=== PATIENT | female | born 1955 | race Caucasian/White ===

== ENCOUNTER 2016-05-14 21:18 | Emergency (ER) | payer OTHER ==
[~2016-05-14] VITALS: Ht 160 cm; Wt 110.5 kg
[~2016-05-14 21:18] MED LIST: ACET-171 PO; ALPR1TAB7 PO; ASPI-973 PO; CARV6.252 PO; CLOP75TA3 PO; CYCL5TAB PO; DOCU50CA7 PO; FABRAZYME IV; GABA600T2 PO; GLPZ5T PO; INSU100I SQ; LIP40 PO; Lantus; MYCO500T3 PO; NPH,100V11 SUBQ; ONDA-53 PO; OXYC20TA4 PO; PANT40TA2 PO; PRD5T PO; Senna PO; TACR1CAP8 PO; TORS10TA5 PO
[2016-05-14] MEDS ORDERED: 0.9% Sodium Chloride 1,000 ML IV ONE (21:21)
--- NOTE | 2016-05-14 21:21 | ED.REPORT ---
HPI-Altered Mental Status Date of Service May 14, 2016 ED Provider: MD Kennedy This is a 60 year old female with a history of Fabry disease s/p renal transplant in 2010 and DM presenting to the emergency department via EMS due to altered mental status. En route, patient was awake but not responsive to interview. En route, blood pressure 142/77, HR 120, blood sugar 338. On interview with family members present in the room, they report pt has been sick in the last few weeks with cough and cold symptoms with productive cough with green sputum. In the last two days, they report increased malaise and weakness, patient has been unable to get out of bed in the last two days. Nursing Notes Stated Complaint: ALTERED MENTAL STATUS Nursing Notes Reviewed: Yes Allergies: Coded Allergies: Penicillins (Verified Allergy, Severe, Anyphylaxis - SOB, 02/10/13) warfarin sodium (Verified Allergy, Severe, R/T FABRY'S DISEASE - CVA, ) hydrocodone bitartrate (Verified Allergy, Mild, Dizzy-"ILL", 08/07/12) iodine (Verified Allergy, Unknown, 10/27/14) pregabalin (Unverified Allergy, Unknown, 10/27/14) unable to urinate while on med Uncoded Allergies: Iodine-Topical (Allergy, Severe, Rash (BETADINE), 08/07/12) GRAPEFRUIT/POMEGRANATE (Adverse Reaction, Severe, INTERACT W/ MEDS, 08/07/12) Scheduled ([Fabrazyme]) 70 MG IV [id number] ([Lantus]) 45 HS ([Senna]) 1 TAB PO DAILY Aspirin (Aspirin) 81 Mg Tablet 81 MG PO DAILY Atorvastatin (Lipitor) 40 Mg Tablet 40 MG PO DAILY Atorvastatin (Lipitor) 40 Mg Tablet 40 MG PO DAILY Carvedilol (Carvedilol) 6.25 Mg Tablet 6.25 MG PO BID Clopidogrel Bisulfate (Plavix) 75 Mg Tablet 75 MG PO DAILY Gabapentin (Gabapentin) 600 Mg Tablet 600 MG PO BID Glipizide (Glipizide) 5 Mg Tablet 5 MG PO BID Insulin Aspart (NovoLOG U-100 Pen) 100 Unit/Ml Insuln.pen 5-25 UNITS SQ TIDWM Mycophenolate Mofetil (Mycophenolate Mofetil) 500 Mg Tablet 500 MG PO BID NPH, Human Insulin Isophane (HUMulin-N U100 Insulin Vial) 100 Unit/1 Ml Vial 60 UNIT SUBQ AM Ondansetron (Ondansetron) 4 Mg Tablet 4 MG PO prn Pantoprazole DR (Protonix) 40 Mg Tablet 40 MG PO DAILY Prednisone (PredniSONE) 5 Mg Tab 5 MG PO DAILY Tacrolimus (Tacrolimus) 1 Mg Capsule 4 MG PO BID Scheduled PRN Acetaminophen (Acetaminophen) 500 Mg Tablet 500 MG PO Q6H PRN PRN For Pain Alprazolam (Alprazolam) 1 Mg Tablet 1 MG PO BID PRN PRN For Anxiety Cyclobenzaprine (Cyclobenzaprine) 5 Mg Tablet 10 MG PO TID PRN PRN Spasm Docusate Sodium (Docusate Sodium) 50 Mg Capsule 100-200 MG PO BID PRN PRN For Constipation oxyCODONE (oxyCODONE) 20 Mg Tablet 20 MG PO HS PRN PRN For Pain Miscellaneous Medications Torsemide (Torsemide) 10 Mg Tablet 10 MG PO General Time Seen by MD: 21:20 Chief Complaint Decreased responsiveness Hx Obtained From: EMS Arrived By: Ambulance Sudden in Onset?: Yes Onset Occurred: Just prior to arrival Symptom Duration: Since onset Severity: Current: No pain currently Pertinent Negative: Pt denies other symptoms Recent Healthcare: Recent hospitalization Similar Sx Previous: No Past Medical History Past Medical History Fabry disease Reports: Diabetes mellitus Past Surgical History Renal transplant in 2010 at Ambulatory Status Independent Review of Systems Unable to Obtain ROS Mental status (limited) Psychiatric: Reports: Change mental status Physical Exam Initial Vital Signs Vital Signs (First) Date Time Temp Pulse Resp B/P Pulse Ox O2 Delivery O2 Flow Rate FiO2 05/14/16 21:26 39.6 126 22 162/94 98 Nasal Cannula 2 -- Initial VS: Reviewed Extremities: Vascular intact General/Constitutional: Awake Head / Eyes: PERRL Neck: Atraumatic, Supple, No meningismus, Full range of motion, No swelling, Non-tender, No midline vertebral tend, No masses, No carotid bruit, Thyroid NL Respiratory / Chest: Breath sounds NL, Breath sounds = bilat, No respiratory distress, No rales, No rhonchi, No wheezing Palpable chord in left chest Heart Rate / Rhythm: Positive: Tachycardia Neurologic: No sensory deficits Mental Status: Positive: Unresponsive Abdomen: BS normoactive Contusions to bilateral stomach. Erythema and edema above pubic bone that is tender to palpation Upper Extremity / MS: Vascular intact Fistula in left upper extremity with palpable thrill Interpretation & Diagnostics Lab Results Interpretation Result Diagram: 05/14/16223405/14/162234 Test 05/14/16 22:10 05/14/16 22:35 Urine Color Yellow (YELLOW) Urine Appearance Clear (CLEAR,HAZY) Urine pH 6.0 (5.0-8.0) Urine Specific [place] 1.015 (1.003-1.035) Urine Protein 100mg/dL (NEG,TRACE) Urine Glucose (UA) 250mg/dL (NEGATIVE) Urine Ketones Negativemg/dL (NEGATIVE) Urine Occult Blood Moderate (NEGATIVE) Urine Nitrite Positive (NEGATIVE) Urine Bilirubin Negative (NEGATIVE) Urine Urobilinogen Normalmg/dL (NORMAL) Urine Leukocyte Esterase Moderate (NEGATIVE) Urine RBC 3-10/hpf (0-2) Urine WBC >50/hpf (0-5) Urine Epithelial Cells Many/hpf (NONE-MOD) Urine Crystals None seen (NONE SEEN) Urine Bacteria Many/hpf (NONE-FEW) Urine Hyaline Casts None/lpf (NONE) Urine Granular Casts None seen (NONE SEEN) Urine Waxy Casts None seen (NONE SEEN) Urine Red Blood Cell Casts None seen (NONE SEEN) Urine White Blood Cell Casts None seen (NONE SEEN) Urine Mucus None seen (None Seen) Urine Trichomonas None seen (NONE SEEN) Urine Yeast None (NONE SEEN) Urinalysis Comment None Urine Culture Reflexed Indicated White Blood Count 14.7th/mm3 (3.8-10.1) Red Blood Count 4.42mil/mm3 (3.90-5.20) Hemoglobin 13.6g/dL (12.0-15.6) Hematocrit 40.9% (35.0-46.0) Mean Corpuscular Volume 92.5fL (81-100) Mean Corpuscular Hemoglobin 30.8pg (27.0-35.0) Mean Corpuscular Hemoglobin Concent 33.3% (32.0-37.0) Red Cell Distribution Width 14.5% (12.3-15.4) Platelet Count 307bil/L (150-400) Neutrophils (%) (Auto) 82% (40-74) Lymphocytes (%) (Auto) 4% (14-46) Monocytes (%) (Auto) 14% (4-12) Eosinophils (%) (Auto) 0% (0-5) Basophils (%) (Auto) 0% (0-3) Prothrombin Time 11.1sec (8.1-12.5) Prothromb Time International Ratio 1.04ratio Activated Partial Thromboplast Time 27.3sec (22.8-33.0) Sodium Level 136mEq/L (134-144) Potassium Level 5.1mEq/L (3.5-5.2) Chloride Level 96mEq/L (97-108) Carbon Dioxide Level 21mmol/L (18-29) Blood Urea Nitrogen 56mg/dL (8-27) Creatinine 2.44mg/dL (0.57-1.00) Estimat Glomerular Filtration Rate 29mL/min (>59) Glucose Level 300mg/dL (60-99) Lactic Acid Level 1.3mmol/L (0.4-2.0) Calcium Level 12.4mg/dL (8.5-10.1) Phosphorus Level 3.0mg/dL (2.5-4.9) Magnesium Level 1.4mg/dL (1.6-2.6) Total Bilirubin 0.6mg/dL (0.0-1.2) Aspartate Amino Transf (AST/SGOT) 20U/L (0-50) Alanine Aminotransferase (ALT/SGPT) 22U/L (0-32) Alkaline Phosphatase 104U/L (25-165) Ammonia 45ug/dL (18-53) Troponin T 0.111ug/L (0.0-0.011) Total Protein 7.9g/dL (6.4-8.4) Albumin 4.0g/dL (3.4-5.0) Procalcitonin 0.69ng/mL (0.00-0.08) ECG Interpretation ECG Interpretation: Tachycardia at a rate of 129 A-fib with RVR ST elevation in v1 v2 v3 AVR in lead 3 ST depression in V5 and V6 AVL in lead 1 t-wave inversion in lead 1 and v6 and AVL Time: 21:29 Interpreted by: ED physician X-Ray Chest Interpretation Chest Xray Interpretation: no definite infiltrate port in left chest Interpretation / Wet Read by: Wet read ED physician Miscellaneous: Cardiomegaly present Re-Eval/Medical Decision Med Decision/Clinical Course 60-year-old female with past medical history of hypertension, diabetes, status post cadaveric kidney transplant in 2010 at the [facility] brought in by EMS tachycardic and altered. She was found to be afebrile by rectal temp. The pharyngeal diagnosis includes but is not limited to urinary tract infection versus acute kidney injury versus sepsis versus pneumonia. Chest x-ray is a poor study, however, I do not see a focal infiltrate. She has a UTI, leukocytosis, and acute kidney injury with increase of her creatinine to 2.4 from 1.5 in December. Her lactic acid is normal. The remainder of her CMP is unremarkable. I spoke with our cardiac rehab nurse Dr. Elmore, who recommended discussing the case with the [facility], since she is a kidney transplant patient and has new acute kidney injury. She has been accepted by ICU Dr. Ibarra and is being transferred ALS. She got 2 L of fluids in the emergency department, meropenem, vancomycin, and levofloxacin. She is allergic to penicillins which is why he used meropenem and not Zosyn. Her heart rate was initially elevated at the 120s, but improved to the low 100s when she left. Her mental status also improved drastically, and when she left, she was able to answer my questions appropriately. Initially, there was concern for ST elevation on her EKG. I discussed the case with cardiology Dr. Coronado who agrees that she is not having an ST elevation OK, though she does have a positive troponin, likely secondary to sepsis and elevated creatinine. Additionally, because of her altered mental status, I performed a CT scan to rule out subarachnoid hemorrhage, which she does not have. Patient has been accepted at [facility] and is being transported. She and her family are amenable to transport. Re-Evaluation/Progress #1: Time of Eval: 23:44 Re-Evaluation/Progress Note: Discussed need for admission with family members present in the room, all questions addressed. Re-Evaluation/Progress #2: Time of Eval: 01:40 Re-Evaluation/Progress Note: Plan for transfer to all questions addressed. Consultation #1: Referral / Consult Name: Tyson Coronado MD Call Returned at: 21:26 Litigation Docket Manager: Agrees with eval, Agrees with plan Note: editor house organ will review ECG Consultation #2: Referral / Consult Name: Tyson Coronado MD Call Returned at: 21:40 Litigation Docket Manager: Agrees with eval Note: Agrees, no ST elevation OK Consultation #3: Referral / Consult Name: Justen Elmore DO Consulted With: Nephrology Call Returned at: 23:49 Litigation Docket Manager: Agrees with eval, Agrees with plan Note: Recommends discussing patient care with and 100 mg hydrocortisone at this time Consultation #4: Call Returned at: 00:24 Note: Discussed patient care with Dr. Ibarra at , she accepts transfer Counseled Regarding: Diagnosis, Lab results, Need for follow-up, Need for transfer Patient Discharge & Departure Impression: Primary Impression: UTI (urinary tract infection) Urinary tract infection type: site unspecified Hematuria presence: without hematuria Qualified Code: N39.0 - Urinary tract infection, site not specified Additional Impressions: Sepsis Sepsis type: sepsis due to unspecified organism Qualified Code: A41.9 - Sepsis, unspecified organism RAFAT (acute kidney injury) Elevated troponin Disposition: Transfer, Acute Care Facility Receiving Hospital: - Dr. Ibarra Transfer Accepted: Yes Transfer Accepted at: 01:40 Transfer Reason: Higher level of care Patient Status: Stable Patient Informed: Yes Discharge Condition All VS Reviewed: Yes Condition: Stable Referrals: Deshawn Webster (PCP) Scribe Attestation Portions of this note were transcribed by Cornelius Magallon. I, Dr. Benavides personally performed the history, physical exam and medical decision-making; I reviewed and confirmed the accuracy of the information in the transcribed note. Signed by: carl Petty. 05/14/2016, 03:00. Caryn Benavides MD May 14, 2016 21:21 CORNELIUS MAGALLON May 14, 2016 21:30
[2016-05-14 21:26] VITALS: BP 162/94; PULSE 126; RESP 22; O2SAT 98
[2016-05-14 22:00] VITALS: BP 133/69; PULSE 125; RESP 24; O2SAT 97
[2016-05-14] MEDS ORDERED: Meropenem Inj 1,000 MG in 0.9% Sodium Chloride 100 ML IV ONE (22:10)
[2016-05-14] MEDS ORDERED: levoFLOXacin Inj 750 MG in IV Premix 1 EACH IV ONE (22:10)
[2016-05-14] MEDS ORDERED: Vancomycin Dose per Pharmacist XX ONE (22:10)
[2016-05-14] MEDS ORDERED: Vancomycin Inj 1,750 MG in 0.9% Sodium Chloride 500 ML IV ONE (22:30)
[2016-05-14 22:42] LABS: APPEARANCE,URINE CLEAR (CLEAR,HAZY); COLOR,URINE YELLOW (YELLOW); OCCULT BLOOD,URINE MODERATE (NEGATIVE); UROBILINOGEN,URINE NORMAL (NORMAL)
[2016-05-14 22:58] LABS: Mean Corpuscular Hemoglobin 30.8 pg (27.0-35.0); Mean Corpuscular Volume 92.5 fL (81-100); NEUTROPHILS % (AUTO) 82 % (40-74); Platelet Count 307 bil/L (150-400)
[2016-05-14 22:59] LABS: BASOPHILS % (AUTO) 0 % (0-3); EOSINOPHILS % (AUTO) 0 % (0-5); MONOCYTES % (AUTO) 14 % (4-12)
[2016-05-14 23:08] LABS: INR 1.04 ratio
[2016-05-14 23:35] LABS: Magnesium 1.4 mg/dL (1.6-2.6)
[2016-05-14 23:37] LABS: TROPONIN T 0.111 ug/L (0.0-0.011)
[2016-05-14] MEDS ORDERED: Hydrocortisone 50 mg/mL 2 mL Inj IVPUSH ONE (23:50)
[2016-05-15] VITALS: BP 129/56; PULSE 122; RESP 22; O2SAT 99
[2016-05-15] MEDS ORDERED: 0.9% Sodium Chloride 1,000 ML IV ONE (00:55)
[2016-05-15 03:40] VITALS: BP 132/62; PULSE 109; RESP 22; O2SAT 99
--- NOTE | 2016-05-15 06:02 | DRSVH ---
PROCEDURE: CT BRAIN WITHOUT CONTRAST ([id number]) INDICATIONS: altered TECHNIQUE: Noncontrast 4.5 mm thick angled axial sections acquired from the foramen magnum to the vertex, with c oronal reformats. COMPARISON: [facility], CT, BRAIN W/O CONTRAST, 09/10/2009, 12:39. FINDINGS: Image quality: Excellent. CSF spaces: Basal cisterns are patent. No extra-axial fluid collections. The ventricles are symmet jennifer in size and shape. Brain: No intracranial bleeds or masses. There is left frontal encephalomalacia probably chronic. T here is cerebral volume loss for age, with resultant ventricular and sulcal prominence. There are pe riventricular and deep white matter chronic small vessel ischemic changes. There is intracranial int ernal carotid artery atherosclerosis. Skull and face: Calvarium and visualized facial bones appear intact, without suspicious lesions. Sinuses: Bilateral maxillary sinus disease IMPRESSION: No acute intracranial process. Chronic left frontal encephalomalacia. Bilateral maxillary sinus disease. Dictated by: Bal Fisher M.D. on 05/14/2016 at 22:04 Approved by: Bal Fisher M.D. on 05/14/2016 at 22:07
--- NOTE | 2016-05-15 09:00 | DRSVH ---
PROCEDURE: X-RAY CHEST ONE VIEW, PORTABLE ([id number]) INDICATIONS: altered mental status TECHNIQUE: One view of the chest was acquired. COMPARISON: [facility], CR, CHEST 2VW, 11/18/2008, 9:41. FINDINGS: Surgical changes and devices: Stable positioning of left chest Port-A-Cath. Left axillary surgical c lips. Lungs and pleura: No pleural effusions or pneumothorax. Lungs are clear. Lung volumes are low. Mediastinum: Mediastinal contours appear normal. Heart size is prominent. Bones and chest wall: No suspicious bony lesions. Overlying soft tissues appear unremarkable. IMPRESSION: No acute cardiopulmonary disease. Dictated by: Juan A SAHU Interpreted: Rhonda Aguirre MD on 05/15/2016 at 8:58 Transcribed by: JOHN on 05/15/2016 at 9:00 Approved by: Rhonda Aguirre MD, PhD on 05/15/2016 at 17:17
[2016-05-18] MEDS ORDERED: INSU100V4 SUBQ (14:36)
== END 2016-05-15 03:00 | disposition short-term general hospital (02) ==
LOC: EDBD 21:18 → EDUNIT# 21:18 → SED 21:18
DX: A41.9 Sepsis, unspecified organism (principal); N39.0 Urinary tract infection, site not specified; N17.9 Acute kidney failure, unspecified; R79.89 Other specified abnormal findings of blood chemistry; B96.20 Unspecified Escherichia coli [E. coli] as the cause of diseases classified elsewhere; E11.9 Type 2 diabetes mellitus without complications; Z94.0 Kidney transplant status; Z87.891 Personal history of nicotine dependence; Z79.82 Long term (current) use of aspirin; Z79.4 Long term (current) use of insulin; Z88.0 Allergy status to penicillin; Z88.5 Allergy status to narcotic agent; Z91.018 Allergy to other foods
CPT/HCPCS: 36415; 51702; 70450; 71010; 80053; 80197; 81000; 82140; 82948; 83605; 83735; 84100; 84145; 84484; 85025; 85610; 85730; 87040; 87086; 87088; 87186; 93005; 96361; 96365; 96368; 96375; 99285; J1720; J1956; J2185; J3370; J7030; J7040